=== PATIENT | male | born 1970 | race Two or more races ===

== ENCOUNTER 2020-03-27 08:46 | Outpatient (REF) | payer BC, SELFPAY ==
[2020-03-27 10:18] LABS: Alanine Aminotransferase 34 U/L (0-40); Albumin Level 4.5 g/dL (3.5-5.0); Alkaline Phosphatase 89 U/L (39-117); Anion Gap 9 (12-20); Aspartate Amino Transferase 18 U/L (5-37); Bilirubin Total 0.5 mg/dL (0.0-1.0); Blood Urea Nitrogen 15 mg/dL (9-16); Calcium 9.3 mg/dL (8.4-10.2); Carbon Dioxide 27 mmol/L (22-29); Chloride 107 mmol/L (96-108); Cholesterol 214 mg/dL; Estimated Glomerular Filt Rate > 60; Glucose Fasting 91 mg/dL (60-99); HDL Cholesterol 38 mg/dL; LDL Cholesterol Calculated 146 mg/dl; Potassium 4.1 mmol/l (3.3-5.1); Sodium 139 mmol/L (135-145); Triglycerides 152 mg/dL
[2020-03-27 10:43] LABS: Vitamin D 25-OH Total 22.5 ng/mL (>30)
== END 2020-03-27 08:47 | disposition home or self-care (01) ==
LOC: HO.LAB 08:46
PROVIDERS: PCP Internal Medicine; Visit Provider Internal Medicine
DX: E78.2 Mixed hyperlipidemia (principal); E55.9 Vitamin D deficiency, unspecified
CPT/HCPCS: 36415; 80053; 80061; 82306

== ENCOUNTER → 2020-06-26 08:56 | Outpatient (BNVA) | payer BC, SELFPAY | PROVIDERS: PCP Internal Medicine; Visit Provider Urology | DX: N40.0 Benign prostatic hyperplasia without lower urinary tract symptoms (principal); Z98.890 Other specified postprocedural states | CPT/HCPCS: 51798; 81002 ==

== ENCOUNTER 2020-11-27 08:56 | Outpatient (REF) | payer BC, SELFPAY ==
--- NOTE | ~2020-11-27 | XR_ITS ---
EXAMINATION: XR FEET, BILATERAL CLINICAL INFORMATION: Plantar fascial fibromatosis COMPARISON: None TECHNIQUE: 3 views of each foot FINDINGS: Right: Bone alignment is normal. No fracture or dislocation is seen. There is mild arthritis at the 1st MTP joint with joint space narrowing and osteophyte formation. There is also mild arthritis at the talonavicular joint with small osteophytes. There are small calcaneal spurs. Soft tissues are otherwise unremarkable. Left: Bone alignment is normal. No fracture or dislocation is seen. There are small osteophytes talonavicular joint. Joint spaces are otherwise normal. There is a small plantar calcaneal spur. Soft tissues are otherwise unremarkable. XR/XR foot LT 2V IMPRESSION: Right foot: Mild arthritis at the 1st MTP and talonavicular joint. Small calcaneal spurs. Left foot: Mild arthritis at the talonavicular joint and small plantar calcaneal spur.
--- NOTE | ~2020-11-27 | XR_ITS ---
EXAMINATION: XR FEET, BILATERAL CLINICAL INFORMATION: Plantar fascial fibromatosis COMPARISON: None TECHNIQUE: 3 views of each foot FINDINGS: Right: Bone alignment is normal. No fracture or dislocation is seen. There is mild arthritis at the 1st MTP joint with joint space narrowing and osteophyte formation. There is also mild arthritis at the talonavicular joint with small osteophytes. There are small calcaneal spurs. Soft tissues are otherwise unremarkable. Left: Bone alignment is normal. No fracture or dislocation is seen. There are small osteophytes talonavicular joint. Joint spaces are otherwise normal. There is a small plantar calcaneal spur. Soft tissues are otherwise unremarkable. XR/XR foot RT 2V IMPRESSION: Right foot: Mild arthritis at the 1st MTP and talonavicular joint. Small calcaneal spurs. Left foot: Mild arthritis at the talonavicular joint and small plantar calcaneal spur.
== END 2020-11-27 08:57 | disposition home or self-care (01) ==
LOC: HO.XRAY 08:56
PROVIDERS: PCP Internal Medicine; Visit Provider Internal Medicine
DX: M72.2 Plantar fascial fibromatosis (principal); E78.00 Pure hypercholesterolemia, unspecified
CPT/HCPCS: 73620

== ENCOUNTER 2021-02-19 07:10 | Outpatient (REF) | payer BC, SELFPAY ==
[2021-02-19 08:10] LABS: Alanine Aminotransferase 25 U/L (0-40); Albumin Level 4.5 g/dL (3.5-5.0); Alkaline Phosphatase 98 U/L (39-117); Anion Gap 12 (12-20); Aspartate Amino Transferase 16 U/L (5-37); Bilirubin Total 0.3 mg/dL (0.0-1.0); Blood Urea Nitrogen 16 mg/dL (9-16); Calcium 10.1 mg/dL (8.4-10.2); Carbon Dioxide 26 mmol/L (22-29); Chloride 110 mmol/L (96-108); Cholesterol 222 mg/dL; Estimated Glomerular Filt Rate > 60; Glucose Fasting 90 mg/dL (60-99); HDL Cholesterol 38 mg/dL; LDL Cholesterol Calculated 136 mg/dl; Potassium 4.6 mmol/L (3.3-5.1); Sodium 143 mmol/L (135-145); Total Protein 7.2 g/dL (6.5-8.0); Triglycerides 241 mg/dL
[2021-02-26 04:35] LABS: Vitamin D 25-OH, D2 <4 ng/mL; Vitamin D 25-OH, D3 17 ng/mL; Vitamin D 25-OH, Total 17 ng/mL (30-100)
== END 2021-02-19 07:11 | disposition home or self-care (01) ==
LOC: HO.LAB 07:10
PROVIDERS: PCP Internal Medicine; Visit Provider Urology
DX: Z12.5 Encounter for screening for malignant neoplasm of prostate (principal); N40.1 Benign prostatic hyperplasia with lower urinary tract symptoms; E78.5 Hyperlipidemia, unspecified; E55.9 Vitamin D deficiency, unspecified; E78.00 Pure hypercholesterolemia, unspecified
CPT/HCPCS: 36415; 80053; 80061; 82306; 84153

== ENCOUNTER → 2021-03-06 13:34 | Outpatient (BNVA) | payer BC, SELFPAY | PROVIDERS: PCP Internal Medicine; Visit Provider Urology ==

== ENCOUNTER 2022-04-20 07:20 | Outpatient (REF) | payer BC, SELFPAY ==
[2022-04-20 08:37] LABS: Alanine Aminotransferase 32 U/L (0-40); Albumin Level 4.6 g/dL (3.5-5.0); Alkaline Phosphatase 113 U/L (39-117); Anion Gap 15 (12-20); Aspartate Amino Transferase 19 U/L (5-37); Bilirubin Total 0.5 mg/dL (0.0-1.0); Blood Urea Nitrogen 19 mg/dL (9-16); Calcium 9.7 mg/dL (8.4-10.2); Carbon Dioxide 26 mmol/L (22-29); Chloride 106 mmol/L (96-108); Cholesterol 278 mg/dL; Estimated Glomerular Filt Rate > 60; Glucose Fasting 86 mg/dL (60-99); HDL Cholesterol 41 mg/dL; LDL Cholesterol Calculated 213 mg/dl; Potassium 4.6 mmol/L (3.3-5.1); Sodium 142 mmol/L (135-145); Total Protein 7.4 g/dL (6.5-8.0); Triglycerides 124 mg/dL
[2022-04-20 09:01] LABS: Prostate Specific Antigen 1.61 ng/mL (<0.05-4.0)
[2022-04-20 09:04] LABS: Vitamin D 25-OH Total 20.2 ng/mL (>30)
== END 2022-04-20 07:21 | disposition home or self-care (01) ==
LOC: HO.LAB 07:20
PROVIDERS: Absent Provider Urology; PCP Internal Medicine; Visit Provider Internal Medicine
DX: N40.1 Benign prostatic hyperplasia with lower urinary tract symptoms (principal); N13.8 Other obstructive and reflux uropathy; E66.3 Overweight; E78.5 Hyperlipidemia, unspecified; E55.9 Vitamin D deficiency, unspecified
CPT/HCPCS: 36415; 80053; 80061; 82306; 84153

== ENCOUNTER 2022-04-29 08:58 | Day surgery (SDC) | payer BC, SELFPAY ==
[2022-04-23 12:22] VITALS: BMI 29.4
--- NOTE | 2022-04-26 08:25 | HO.ANESPROP2 ---
HPI - Anesthesia Eval Consult details Narrative: 52yo M for Colonoscopy [facility]LY [facility] Active Problems Active Problems: All Active Problems (Updated 11/26/21 @ 17:06 by Sravanthi Banuelos MD) Physical exam (Acute) Overweight (BMI 25.0-29.9) (Acute) Bone spur (Acute) Benign prostatic hyperplasia with lower urinary tract symptoms (Acute) Plantar fasciitis (Acute) Hypovitaminosis D (Acute) Pure hypercholesterolemia (Acute) Past Medical History Medical History Benign prostatic hyperplasia with lower urinary tract symptoms Bone spur BPH (benign prostatic hyperplasia) Hypovitaminosis D Overweight (BMI 25.0-29.9) Physical exam Plantar fasciitis Pure hypercholesterolemia Family History Family History Father CVD (cardiovascular disease) Mother No problems noted. Maternal Grandmother Cancer Surgical History Surgical History No pertinent past surgical history Social History Social History Housing: House Alcohol intake: current Alcohol intake frequency: does not drink Alcohol type: beer Patient Tobacco Use Status: Former Tobacco user Tobacco use type: Cigarette e-Cigarette/Vaping Use: Never Used Second Hand Smoke Exposure: No service: No Current occupational status: employed Current occupational exposures/hazards: No Cognitive needs: No Hearing needs: No Vision needs: No Meds Allergies Allergy/AdvReac Type Severity Reaction Status Date / Time No Known Allergies Allergy Verified 04/29/22 14:02 Exam Exam Date and Time: April 26, 2022 0825 Height,Weight and Vital Signs: Height 5 ft 3 in Weight 75.296 kg Pertinent Lab Results Pertinent Lab Results: Laboratory Tests 04/20/22 07:33 Sodium 142 Potassium 4.6 Chloride 106 Carbon Dioxide 26 BUN 19 H Creatinine 1.01
[2022-04-29 09:07] VITALS: BP 138/78; PULSE 62; RESP 18; TEMP 36.8; O2SAT 98
[2022-04-29] MEDS: Lactated Ringers 1,000 ML 100 ML IVCONT (09:18)
--- NOTE | 2022-04-29 09:22 | MHC.SHP ---
Pre-Procedural Eval Section A Date of Service: 04/29/22 The patient is an INPATIENT: No The History & Physical has been completed within 30 days and I have reviewed it.: No Section B Chief Complaint: screening Details of Present Illness: Colon cancer screening Relevant Family History (Specify if Yes): No Relevant Social History: Tobacco Use (former smoker) Present Medications: see Short Stay Collaborative assessment Medical History: Significant History (Benign prostatic hyperplasia with lower urinary tract symptoms Bone spur BPH (benign prostatic hyperplasia) Hypovitaminosis D Overweight (BMI 25.0-29.9) Physical exam Plantar fasciitis Pure hypercholesterolemia) History of Previous Operations: No relevant previous surgery Allergies: Allergies Allergy/AdvReac Type Severity Reaction Status Date / Time No Known Allergies Allergy Verified 11/26/21 17:04 Review of Systems Sugical H&P ROS: Negative: Constitution, Respiratory and Gastrointestinal Exam Surgical H&P Exam: Normal: Heart, Normal: Lungs, Normal: Extremities and Normal: Abdomen Plan Diagnosis/Plan: Unchanged I have reviewed the history and physical and performed a pertinent physical examination on my patient. No changes have occurred unless specified.
--- NOTE | 2022-04-29 09:29 | PM.OP ---
Brief Operative Note Date of Service: 04/29/22 Pre-op diagnosis: colon cancer screening - direct access Post-op diagnosis: other ( diverticulosis, hemorrhoids) Procedure: COLONOSCOPY TO CECUM. Surgeon: Michael Dodd MD Anesthesia: MAC Was an Wheel And Caster Repairer used for this Procedure?: Yes Wheel And Caster Repairer: Javier Hart Estimated blood loss (mL): 0 Pathology: none sent Condition: stable Disposition: PACU
--- NOTE | 2022-04-29 09:32 | W.PM.OPN ---
Operative Note Operative Note Date of Service: 04/29/22 Narrative: Pre-op diagnosis: colon cancer screening - direct access Post-op diagnosis:?other ( diverticulosis, hemorrhoids) Surgeon: Michael Dodd MD Anesthesia:?MAC COLONOSCOPY TILL CECUM Consent: Indications for the procedure and potential complications of bleeding, perforation, reaction to medications and missed diagnosis were discussed with the patient and informed consent was obtained. Instrument: Olympus PCF H 190 L variable stiffness pediatric colonoscope Monitoring: Vital signs and clinical assessment, intermittent blood pressure monitoring, continuous EKG monitoring, Pulse oximetry and Carbon Dioxide monitoring were done throughout the procedure. Colon withdrawl time was 12 minutes. Procedure: The patient was placed in the left lateral decubitis position and pre-procedure medications were administered. After a digital rectal examination of the ano-rectum, the video colonoscope was inserted into the rectum and advanced through the colon to the cecum. The colonoscope was slowly withdrawn in a retrograde panoramic fashion and the colon mucosa was carefully examined including a retroflexed view of the rectum. Findings and interventions are described below. Procedure Difficulty: Without difficulty Findings: Terminal Ileum: Not evaluated Cecum: Normal Ascending Colon: Scattered moderate diverticulosis throughout the colon Transverse Colon: Scattered moderate diverticulosis throughout the colon Descending Colon: Scattered moderate diverticulosis throughout the colon Sigmoid Colon: Scattered moderate diverticulosis throughout the colon (left > right) Rectum: Normal Ano-rectum: Moderate internal hemorrhoids Colon preparation: Excellent Impression and Post Procedure Diagnosis: Colonoscopy Findings: no polyps were detected Moderate diverticulosis seen in the entire colon Moderate hemorrhoids on retroflexed exam. Plan: Patient has an appointment on 06/03/22 with his PCP. Repeat Colonoscopy in 10 years. Above findings were reviewed with the patient and diverticulosis handout was given in the discharge area
[2022-04-29 10:01] VITALS: BP 112/68; PULSE 68; RESP 16; TEMP 36.1; O2SAT 97
[2022-04-29 10:16] VITALS: BP 124/64; PULSE 74; RESP 18; TEMP 36.6; O2SAT 98
== END 2022-04-29 11:01 | disposition home or self-care (01) ==
PROVIDERS: PCP Internal Medicine; Visit Provider Internal Medicine Gastroenterology
PROC: 0DJD8ZZ Inspection of Lower Intestinal Tract, Via Natural or Artificial Opening Endoscopic (ICD-10-PCS; CPT 45378; principal; 2022-04-29 10:10)
DX: Z12.11 Encounter for screening for malignant neoplasm of colon (principal); K57.30 Diverticulosis of large intestine without perforation or abscess without bleeding; K64.8 Other hemorrhoids; E78.00 Pure hypercholesterolemia, unspecified; N40.0 Benign prostatic hyperplasia without lower urinary tract symptoms; M72.2 Plantar fascial fibromatosis; M77.30 Calcaneal spur, unspecified foot; Z79.899 Other long term (current) drug therapy; E55.9 Vitamin D deficiency, unspecified; Z87.891 Personal history of nicotine dependence
CPT/HCPCS: 45378

== ENCOUNTER 2022-05-02 11:35 | Outpatient (AMB) | payer BC, SELFPAY ==
--- NOTE | 2022-04-29 14:02 | MHC.OFFVIS ---
Intake Intake Visit Reasons: 1 Year PSA(set) Intake Note: Patient is present for Telephone PSA Follow Up Current Urology Medication: Blood Thinner: Allergies No Known Allergies Allergy (Verified 12/02/22 16:27) HPI HPI Comments History of Present Illness Details Tyler is a very pleasant male. He is seen for the following urologic conditions - lower urinary tract symptoms Kyrgyz translation provided by qualified medical sociologist Telephone evaluation 15 minutes spent in consultation Does have some terminal dribbling Recommendation pelvic floor exercises Discussed PSA which remains in range Follow-up 12 months with repeat PSA Lower urinary tract symptoms Yearly review PSA 04/10 1.9, 02/10 2.5, 04/13 1.6 Prior Medications Does have reasonable stream Review in 12 months [facility] Medical History Benign prostatic hyperplasia with lower urinary tract symptoms Bone spur BPH (benign prostatic hyperplasia) Hypovitaminosis D Overweight (BMI 25.0-29.9) Physical exam Plantar fasciitis Pure hypercholesterolemia Surgical History No pertinent past surgical history Family History Father CVD (cardiovascular disease) Mother No problems noted. Maternal Grandmother Cancer Social History (Updated 12/02/22 @ 16:32 by Sravanthi Banuelos MD) Housing: House Alcohol intake: current Alcohol intake frequency: does not drink Alcohol type: beer Patient Tobacco Use Status: Former Tobacco user Tobacco use type: Cigarette e-Cigarette/Vaping Use: Never Used Second Hand Smoke Exposure: No service: No Current occupational status: employed Current occupational exposures/hazards: No Cognitive needs: No Hearing needs: No Vision needs: No Review of Systems Const All systems reviewed & are unremarkable except as noted in HPI and below Reports no additional complaints Resp Reports no additional complaints GI Reports no additional complaints Reports as per HPI Musc Reports no additional complaints Physical Exam Telemedicine evaluation Appropriate responses Regular breathing rate and rhythm HEENT Head: Yes normal to inspection Ears: hearing grossly normal bilaterally Eyes General: appearance normal, both eyes and all related structures Neck Neck: Yes normal visual inspection Chest Chest palpation & inspection: normal inspection of the chest Resp Effort & Inspection: normal respiratory effort and able to speak in complete sentences Assessment & Plan Assessment & Plan (1) Benign prostatic hyperplasia with lower urinary tract symptoms: Code(s): N40.1 - Benign prostatic hyperplasia with lower urinary tract symptoms Plan Twelve month follow-up Orders: Orders Prostate Specific Antigen 12 Months N40.1 - Benign prostatic hyperplasia with lower urinary tract symptoms Patient Instructions: Imaging studies, laboratory and physical exam results were discussed and reviewed in detail. No major barriers to patient understanding were identified. An opportunity to ask questions regarding the treatment plan was provided. All questions were answered. The patient expressed understanding and agreement with the above treatment plan. The patient is aware they should contact our office by phone for worsening of their current condition or the appearance of new urologic symptoms. Compliance is encouraged with any medications and followup testing that is ordered. It is a privilege to participate in the urologic care of your patient. If you have any questions or concerns regarding treatment for the above conditions, or other urologic issues, please do not hesitate to contact me. The office telephone contact is [phone]. This note is constructed using voice recognition software. While every effort has been made to ensure accuracy tubing mill setter errors may have been included. Yours sincerely, Dr Apollo Milan MD, [facility] - Urology Providers of Expert, Compassionate Care for the Genitourinary System Telehealth Telehealth Location of provider rendering services: practice address Location of patient: address on file Patient Identification confirmed using: Name, : Yes Telehealth method: video Patient verbally consented to treatment: Yes Patient verbally consented to billing insurance company: Yes Patient informed of any privacy concerns related to visit: Yes Coding Level of Care Code Tele Est Pt Level 3 (54220) Diagnoses Benign prostatic hyperplasia with lower urinary tract symptoms N40.1
== END 2022-05-02 12:23 | disposition home or self-care (01) ==
LOC: HO.HUSH 11:36
PROVIDERS: PCP Internal Medicine; Visit Provider Urology
DX: N40.1 Benign prostatic hyperplasia with lower urinary tract symptoms (principal)
CPT/HCPCS: 99213

== ENCOUNTER 2022-12-07 07:14 | Outpatient (REF) | payer BC, SELFPAY ==
[2022-12-07 08:39] LABS: Alanine Aminotransferase 27 U/L (0-40); Albumin Level 4.4 g/dL (3.5-5.0); Alkaline Phosphatase 102 U/L (39-117); Anion Gap 11 (12-20); Aspartate Amino Transferase 16 U/L (5-37); Bilirubin Total 0.8 mg/dL (0.0-1.0); Blood Urea Nitrogen 19 mg/dL (9-16); Calcium 9.7 mg/dL (8.4-10.2); Carbon Dioxide 25 mmol/L (22-29); Chloride 110 mmol/L (96-108); Cholesterol 215 mg/dL; Estimated Glomerular Filt Rate > 60; Glucose Fasting 90 mg/dL (60-99); HDL Cholesterol 38 mg/dL; LDL Cholesterol Calculated 153 mg/dl; Sodium 142 mmol/L (135-145); Total Protein 7.2 g/dL (6.5-8.0); Triglycerides 121 mg/dL
[2022-12-07 08:58] LABS: Vitamin D 25-OH Total 22.9 ng/mL (>30)
== END 2022-12-07 07:15 | disposition home or self-care (01) ==
LOC: HO.LAB 07:14
PROVIDERS: PCP Internal Medicine; Visit Provider Internal Medicine
DX: Z00.00 Encounter for general adult medical examination without abnormal findings (principal); E78.5 Hyperlipidemia, unspecified; E55.9 Vitamin D deficiency, unspecified
CPT/HCPCS: 36415; 80053; 80061; 82306

== ENCOUNTER 2023-07-05 08:21 | Outpatient (REF) | payer BC, SELFPAY | END 2023-07-05 08:22 | disposition home or self-care (01) | LOC: HO.LAB 08:21 | PROVIDERS: PCP Internal Medicine; Visit Provider Urology | DX: Z12.5 Encounter for screening for malignant neoplasm of prostate (principal); N40.1 Benign prostatic hyperplasia with lower urinary tract symptoms | CPT/HCPCS: 36415; 84153 ==

== ENCOUNTER 2023-07-18 15:52 | Outpatient (AMB) | payer BC, SELFPAY ==
--- NOTE | 2023-07-18 15:54 | MHC.OFFVIS ---
Intake Intake Visit Reasons: PSA-yearly follow up Intake Note: Patient is present for PSA Follow up Allergies No Known Allergies Allergy (Verified 12/02/22 16:27) HPI HPI Comments History of Present Illness Details Tyler is a very pleasant male. He is seen for the following urologic conditions - lower urinary tract symptoms Dutch translation provided by qualified medical equipment repairer Does have some terminal dribbling Recommendation pelvic floor exercises Discussed PSA which remains in range Follow-up 12 months with repeat PSA Lower urinary tract symptoms Yearly review PSA 04/10 1.9, 02/10 2.5, 04/13 1.6, 07/16 1.9 Prior Medications - tamsulosin daily Does have reasonable stream Review in 12 months PFS Medical History Physical exam Overweight (BMI 25.0-29.9) Bone spur Benign prostatic hyperplasia with lower urinary tract symptoms Plantar fasciitis BPH (benign prostatic hyperplasia) Hypovitaminosis D Pure hypercholesterolemia Surgical History No pertinent past surgical history Family History Father CVD (cardiovascular disease) Mother No problems noted. Maternal Grandmother Cancer Social History Housing: House Alcohol intake: current Alcohol intake frequency: does not drink Alcohol type: beer Patient Tobacco Use Status: Former Tobacco user Tobacco use type: Cigarette e-Cigarette/Vaping Use: Never Used Second Hand Smoke Exposure: No service: No Current occupational status: employed Current occupational exposures/hazards: No Cognitive needs: No Hearing needs: No Vision needs: No Review of Systems Const Denies chills and Denies fever(s) Card Reports no additional complaints and Denies syncope Resp Denies cough GI Denies abdominal pain and Denies heartburn Reports as per HPI and Denies change in libido Neuro Denies syncope Psych Denies change in libido Endo Denies change in libido Physical Exam Const General: cooperative, healthy appearing, comfortable and no acute distress Orientation/consciousness: patient oriented x3 HEENT Face and sinus: Yes normal facial exam Mouth: moist mucous membranes Neck Neck: Yes normal visual inspection, Yes full ROM and Yes trachea midline Chest Chest palpation & inspection: normal inspection of the chest Resp Effort & Inspection: normal respiratory effort, able to speak in complete sentences and no respiratory distress GI Inspection: Yes normal to inspection Back/Spine/Pelvis Cervical Spine: normal cervical lordosis Thoracic/Lumbar Spine: thoracic and lumbar spine normal to inspection Skin General skin exam: no rashes or lesions noted Neuro General: patient oriented x3, gait normal, tone normal and moves all extremities Extrem General: Yes normal to inspection and Yes capillary refill normal Assessment & Plan Assessment & Plan (1) Benign prostatic hyperplasia with lower urinary tract symptoms: Code(s): N40.1 - Benign prostatic hyperplasia with lower urinary tract symptoms Plan Twelve month follow-up Patient Instructions: Imaging studies, laboratory and physical exam results were discussed and reviewed in detail. No major barriers to patient understanding were identified. An opportunity to ask questions regarding the treatment plan was provided. All questions were answered. The patient expressed understanding and agreement with the above treatment plan. The patient is aware they should contact our office by phone for worsening of their current condition or the appearance of new urologic symptoms. Compliance is encouraged with any medications and followup testing that is ordered. It is a privilege to participate in the urologic care of your patient. If you have any questions or concerns regarding treatment for the above conditions, or other urologic issues, please do not hesitate to contact me. The office telephone contact is [phone]. This note is constructed using voice recognition software. While every effort has been made to ensure accuracy hotel valet attendant errors may have been included. Yours sincerely, Dr Apollo Milan MD, [facility] - Urology Providers of Expert, Compassionate Care for the Genitourinary System Coding Level of Care Code Est Pt Level 4 (30190) Diagnoses Benign prostatic hyperplasia with lower urinary tract symptoms N40.1
== END 2023-07-18 16:19 | disposition home or self-care (01) ==
PROVIDERS: PCP Internal Medicine; Referring Provider Internal Medicine; Visit Provider Urology
DX: N40.1 Benign prostatic hyperplasia with lower urinary tract symptoms (principal)
CPT/HCPCS: 99213

== ENCOUNTER → 2023-07-18 15:52 | Outpatient (BNVA) | payer BC, SELFPAY | PROVIDERS: PCP Internal Medicine; Visit Provider Urology ==

== ENCOUNTER 2023-12-08 17:05 | Outpatient (AMB) | payer BC, SELFPAY ==
[2023-12-08 17:14] VITALS: BP 132/88; PULSE 82; O2SAT 97; BMI 29.1
--- NOTE | 2023-12-08 17:14 | MHC.PC.OV ---
Vital Signs 12/08/23 17:14 Height 5 ft 2.6 in Weight 162 lb 4 oz BMI 29.1 BP 132/88 Blood Pressure Location Lt brachial Position Sitting Pulse 82 Pulse Source Pulse Oximeter Pulse Oximetry (%) 97 Oxygen Delivery Method Room Air Intake Visit Reasons: pe Intake Note: Patient is here today for a physical. Regulatory Submissions Associate Required: No Accompanied by: Self / Same As Patient Allergies No Known Allergies Allergy (Verified 12/08/23 17:21) Medication List - Last Reconciled 12/08/23 by Sravanthi Banuelos MD atorvastatin 20 mg PO DAILY 90 days cholecalciferol (vitamin D3) 25 mcg PO DAILY 90 days tamsulosin 0.4 mg PO DAILY Tobacco use date assessed: 12/08/23 Dental Screening Dental Screen Date: 12/08/23 Did you have a dental visit in the last 12 months?: No Did you have a dental problem in the last 6 months where you did not have access to dental care?: No Was dental information given to patient?: Patient has dentist HPI HPI Comments History of Present Illness Details This is a 53-year-old male that comes for his physical exam. Colonoscopy done 2021 was normal. Chest pain or shortness on breath. Compliant with medications. [facility] Medical History Physical exam Overweight (BMI 25.0-29.9) Bone spur Benign prostatic hyperplasia with lower urinary tract symptoms Plantar fasciitis BPH (benign prostatic hyperplasia) Hypovitaminosis D Pure hypercholesterolemia Surgical History No pertinent past surgical history Family History Father CVD (cardiovascular disease) Mother No problems noted. Maternal Grandmother Cancer Social History (Updated 12/08/23 @ 17:24 by Sravanthi Banuelos MD) Housing: House Alcohol intake: current Alcohol intake frequency: holidays/special occasions only Alcohol type: beer Patient Tobacco Use Status: Former Tobacco user Tobacco use type: Cigarette e-Cigarette/Vaping Use: Never Used Second Hand Smoke Exposure: No service: No Current occupational status: employed Current occupational exposures/hazards: No Cognitive needs: No Hearing needs: No Vision needs: No Questionnaire PHQ-9 Over the last 2 weeks, how often have you been bothered by any of the following problems? 1. Little interest or pleasure in doing things: not at all 2. Feeling down, depressed, or hopeless: not at all 3. Trouble falling or staying asleep, or sleeping too much: not at all 4. Feeling tired or having little energy: not at all 5. Poor appetite or overeating: not at all 6. Feeling bad about yourself - or that you are a failure or have let yourself or your family down: not at all 7. Trouble concentrating on things, such as reading the newspaper or watching television: not at all 8. Moving or speaking so slowly that other people could have noticed. Or the opposite - being so fidgety or restless that you have been moving around a lot more than usual: not at all 9. Thoughts that you would be better off or of hurting yourself in some way: not at all Total score: 0 Depression Screening Interpretation: Negative Depression Screening Done: Yes 61640 - PHQ-9 Billing: Yes Source: Developed by Drs. Javier Goldsmith, Jacqueline Coleman, Paco Zapata and colleagues, with an educational alexis from [employer]. Thrive Questionnaire Date Thrive assessed: 12/08/23 I am a: Patient What is your living situation today?: I have a steady place to live Within the past 12 months, did the food you bought not last and you didn't have the money to get more?: Never true Within the past 12 months, did you worry whether your food would run out before you got money to buy more?: Never true Do you have trouble paying for medicines?: No Do you have trouble getting transportation to medical appointments?: No Do you have trouble paying your heating and electricity bill?: No Do you have trouble taking care of your child, family member or friend?: No Do you have trouble with day-to-day activities such as bathing, preparing meals, shopping, managing finances, etc.?: No Are you currently unemployed and looking for a job?: No Are you interested in more education?: No Please select the resources that you would like help with: None Currently or been in a relationship where the following occur: no concerns reported THRIVE Score: 0 AUDIT C Alcohol Use Questionnaire (AUDIT-C) 1. How often do you have a drink containing alcohol?: Monthly or less 2. How many drinks containing alcohol do you have on a typical day when you are drinking?: 1 or 2 3. How often do you have six or more drinks on one occasion?: Never Total Score: 1 Score Reviewed/Action Taken: No CHIARA-7 AMB Questionnaire CHIARA-7 Date CHIARA - 7 assessed: 12/08/23 Feeling nervous, anxious, or on edge: 0 = Not at all Not being able to stop or control worryin = Not at all Worrying too much about different things: 0 = Not at all Trouble relaxin = Not at all Being so restless that it is hard to sit still: 0 = Not at all Becoming easily annoyed or irritable: 0 = Not at all Feeling afraid as if something awful might happen: 0 = Not at all Total CHIARA-7 score (0-4 normal; 5-9 mild; 10-14 moderate; 15-21 severe): 0 Source: Developed by Drs. Javier Goldsmith, Jacqueline Coleman, Paco Zapata and colleagues, with an educational alexis from [employer]. CHIARA-7 Assessment Billing CHIARA-7 Assessment Tool: CHIARA-7 Assessment 01849 Review of Systems Const All systems reviewed & are unremarkable except as noted in HPI and below Card Denies chest pain at rest, Denies chest pain with activity, Denies edema, Denies irregular heart rhythm, Denies claudication, Denies dyspnea, Denies dyspnea on exertion, Denies orthopnea, Denies paroxysmal nocturnal dyspnea and Denies slow heart rate Resp Denies cough, Denies dyspnea and Denies dyspnea on exertion GI Denies abdominal pain, Denies change in bowel habits, Denies excessive flatus, Denies nausea and Denies vomiting Denies urinary hesitancy, Denies urinary incontinence and Denies urinary urgency Physical exam (Primary Care) Vital Signs: Last Vital Signs Pulse 82 12/08/23 17:14 BP 132/88 12/08/23 17:14 Pulse Ox 97 12/08/23 17:14 Oxygen Delivery Method Room Air 12/08/23 17:14 BMI result Body Mass Index 29.1 Tobacco/Smoking Status: Tobacco use Status Tobacco use date assessed 12/08/23 12/08/23 17:19 Patient Tobacco Use Status Former Tobacco user 12/08/23 17:19 Tobacco use type Cigarette 12/08/23 17:19 e-Cigarette/Vaping Use Never Used 12/08/23 17:19 PHQ-9: PHQ-9 Score PHQ-9: Total score 0 12/08/23 17:19 Depression Screening Interpretation: Negative Thrive Assessment: Date of Thrive Assessment Date Thrive assessed 12/08/23 12/08/23 17:19 Currently or been in a relationship where the following occur: no concerns reported Const Orientation/consciousness: patient oriented x3 HENMT Head: Yes normal to inspection, Yes normocephalic and Yes atraumatic Ears: external ears normal Eyes General: appearance normal, both eyes and all related structures Eyelids: Yes eyelids normal Conjunctivae: conjunctivae normal Neck Neck: Yes normal visual inspection and Yes supple Resp Effort & Inspection: normal respiratory effort Auscultation: clear to auscultation bilaterally Cardio Jugular venous distension: no JVD Rate: regular rate Rhythm: regular rhythm Heart sounds: S1 normal heart sound present and S2 normal heart sound present GI Inspection: Yes normal to inspection Palpation (GI): Soft to palpation and nontender Auscultation: normal bowel sounds Skin General skin exam: no rashes or lesions noted Neuro General: patient oriented x3 and no focal motor deficits Extrem General: Yes full ROM Psych Appearance: grossly normal Assessment and Plan Assessment & Plan (1) Physical exam: Code(s): Z00.00 - Encounter for general adult medical examination without abnormal findings Plan: Repeat in a year. Orders: Orders Lipid Panel Today E78.5 - Hyperlipidemia, unspecified Comprehensive [place]. Panel Fast Today Z00.00 - Encounter for general adult medical examination without abnormal findings Vitamin D 25-OH Total Today E55.9 - Vitamin D deficiency, unspecified Medications: Refilled atorvastatin 20 mg PO DAILY 90 days 90 tabs 1RF Coding Level of Care Code Est Pt Prev Care 40-64y(85742) Diagnoses Physical exam Z00.00 Additional Codes CHIARA-7 Assessment Billing - CHIARA-7 Assessment Tool: CHIARA-7 Assessment 38812 ([id number]) Time Spent (min) 30
== END 2023-12-08 17:30 | disposition home or self-care (01) ==
PROVIDERS: PCP Internal Medicine; Visit Provider Internal Medicine
DX: Z00.00 Encounter for general adult medical examination without abnormal findings (principal); E78.5 Hyperlipidemia, unspecified; E55.9 Vitamin D deficiency, unspecified
CPT/HCPCS: 99396

== ENCOUNTER 2023-12-16 06:16 | Outpatient (REF) | payer BC, SELFPAY ==
[2023-12-16 08:29] LABS: Alanine Aminotransferase 26 U/L (0-40); Albumin Level 4.4 g/dL (3.5-5.0); Alkaline Phosphatase 108 U/L (39-117); Anion Gap 12 (12-20); Aspartate Amino Transferase 18 U/L (5-37); Bilirubin Total 0.4 mg/dL (0.0-1.0); Blood Urea Nitrogen 17 mg/dL (9-16); Calcium 9.5 mg/dL (8.4-10.2); Carbon Dioxide 26 mmol/L (22-29); Chloride 110 mmol/L (96-108); Cholesterol 243 mg/dL (<200); Estimated Glomerular Filt Rate > 60; Glucose Fasting 87 mg/dL (60-99); HDL Cholesterol 40 mg/dL (>40); LDL Cholesterol Calculated 171 mg/dL (<100); Potassium 3.7 mmol/L (3.3-5.1); Sodium 144 mmol/L (135-145); Total Protein 7.2 g/dL (6.5-8.0); Triglycerides 162 mg/dL (<150)
== END 2023-12-16 06:17 | disposition home or self-care (01) ==
LOC: HO.LAB 06:16
PROVIDERS: PCP Internal Medicine; Visit Provider Internal Medicine
DX: Z00.00 Encounter for general adult medical examination without abnormal findings (principal); E78.5 Hyperlipidemia, unspecified; E55.9 Vitamin D deficiency, unspecified
CPT/HCPCS: 36415; 80053; 80061; 82306

== ENCOUNTER 2023-12-30 16:54 | Outpatient (AMB) | payer BC, SELFPAY ==
[2023-12-30 16:55] VITALS: BP 152/82; PULSE 72; O2SAT 98; BMI 29.2
--- NOTE | 2023-12-30 16:55 | MHC.PC.OV ---
Vital Signs 12/30/23 16:55 Height 5 ft 2.6 in Weight 163 lb BMI 29.2 BP 152/82 H Blood Pressure Location Lt brachial Position Sitting Pulse 72 Pulse Source Pulse Oximeter Pulse Oximetry (%) 98 Oxygen Delivery Method Room Air Intake Visit Reasons: BP F/U Commercial Illustrator Required: No Accompanied by: Self / Same As Patient Allergies No Known Allergies Allergy (Verified 12/30/23 17:04) Medication List - Last Reconciled 12/30/23 by Sravanthi Banuelos MD atorvastatin 20 mg PO DAILY 90 days cholecalciferol (vitamin D3) 25 mcg PO DAILY 90 days tamsulosin 0.4 mg PO DAILY Tobacco use date assessed: 12/08/23 Dental Screening Dental Screen Date: 12/08/23 HPI HPI Comments History of Present Illness Details This is a 53-year-old male with essential hypertension, pure hypercholesterolemia and low vitamin-D that comes today complaining that his blood pressure has been over 140/90 at home. I will start him on losartan. Also cholesterol is elevated and I will increase atorvastatin from 20 mg to 40 mg. Vitamin-D is low and I will send supplements. No chest pain or shortness on breath. [facility] Medical History (Updated 12/30/23 @ 17:09 by Sravanthi Banuelos MD) Physical exam Overweight (BMI 25.0-29.9) Bone spur Benign prostatic hyperplasia with lower urinary tract symptoms Plantar fasciitis BPH (benign prostatic hyperplasia) Hypovitaminosis D Pure hypercholesterolemia Surgical History No pertinent past surgical history Family History Father CVD (cardiovascular disease) Mother No problems noted. Maternal Grandmother Cancer Social History Housing: House Alcohol intake: current Alcohol intake frequency: holidays/special occasions only Alcohol type: beer Patient Tobacco Use Status: Former Tobacco user Tobacco use type: Cigarette e-Cigarette/Vaping Use: Never Used Second Hand Smoke Exposure: No service: No Current occupational status: employed Current occupational exposures/hazards: No Cognitive needs: No Hearing needs: No Vision needs: No Questionnaire Thrive Questionnaire Date Thrive assessed: 12/08/23 CHIARA-7 AMB Questionnaire CHIARA-7 Date CHIARA - 7 assessed: 12/08/23 Source: Developed by Drs. Javier Goldsmith, Jacqueline Coleman, Paco Zapata and colleagues, with an educational alexis from [employer]. Review of Systems Const All systems reviewed & are unremarkable except as noted in HPI and below Card Denies chest pain at rest, Denies chest pain with activity, Denies edema, Denies irregular heart rhythm, Denies claudication, Denies dyspnea, Denies dyspnea on exertion, Denies orthopnea, Denies paroxysmal nocturnal dyspnea and Denies slow heart rate Resp Denies cough, Denies dyspnea and Denies dyspnea on exertion GI Denies abdominal pain, Denies change in bowel habits, Denies excessive flatus, Denies nausea and Denies vomiting Denies urinary hesitancy, Denies urinary incontinence and Denies urinary urgency Musc Denies atrophy, Denies deformity and Denies limited range of motion Physical exam (Primary Care) Vital Signs: Last Vital Signs Pulse 72 12/30/23 16:55 BP 152/82 H 12/30/23 16:55 Pulse Ox 98 12/30/23 16:55 Oxygen Delivery Method Room Air 12/30/23 16:55 BMI result Body Mass Index 29.2 Tobacco/Smoking Status: Tobacco use Status Tobacco use date assessed 12/08/23 12/30/23 16:56 Patient Tobacco Use Status Former Tobacco user 12/30/23 16:56 Tobacco use type Cigarette 12/30/23 16:56 e-Cigarette/Vaping Use Never Used 12/30/23 16:56 Thrive Assessment: Date of Thrive Assessment Date Thrive assessed 12/08/23 12/30/23 16:56 Resp Effort & Inspection: normal respiratory effort Auscultation: clear to auscultation bilaterally Cardio Jugular venous distension: no JVD Rate: regular rate Rhythm: regular rhythm Heart sounds: S1 normal heart sound present and S2 normal heart sound present Extrem General: Yes full ROM Assessment and Plan Assessment & Plan (1) Essential hypertension: Code(s): I10 - Essential (primary) hypertension Plan: Start losartan. Blood pressure goal is equal or less than 130/80. (2) Pure hypercholesterolemia: Code(s): E78.00 - Pure hypercholesterolemia, unspecified Plan: Increase statins. (3) Hypovitaminosis D: Code(s): E55.9 - Vitamin D deficiency, unspecified Plan: Continue vitamin-D supplements. Medications: New losartan 25 mg PO DAILY 30 tabs 1RF 30 days I10 - Essential (primary) hypertension atorvastatin 40 mg PO BEDTIME 90 tabs 1RF 90 days Refilled cholecalciferol (vitamin D3) 25 mcg PO DAILY 90 tabs 3RF 90 days Discontinued atorvastatin Discontinued Reason: Patient Completed Course 20 mg PO DAILY 90 days 90 tabs 1RF Coding Level of Care Code Est Pt Level 3 (15560) Complex EM visit Add On G2211 Diagnoses Essential hypertension I10 Pure hypercholesterolemia E78.00 Hypovitaminosis D E55.9 Time Spent (min) 22
== END 2023-12-30 17:39 | disposition home or self-care (01) ==
LOC: HO.HMGH 16:54
PROVIDERS: PCP Internal Medicine; Visit Provider Internal Medicine
DX: I10 Essential (primary) hypertension (principal); E78.00 Pure hypercholesterolemia, unspecified; E55.9 Vitamin D deficiency, unspecified
CPT/HCPCS: 99213

== ENCOUNTER 2024-12-09 17:10 | Outpatient (AMB) | payer BC, SELFPAY ==
[2024-12-09 17:15] VITALS: BP 124/86; BMI 29.1
--- NOTE | 2024-12-09 17:15 | A.OFFPC_ITS ---
Vital Signs 12/09/24 17:15 Height 5 ft 2.6 in Weight 162 lb BMI 29.1 BP 124/86 Blood Pressure Location Lt brachial Position Sitting Intake Visit Reasons: Annual Exam Intake Note: Patient here for an annual physical exam Corn Grinder Required: No Accompanied by: Self / Same As Patient Allergies No Known Allergies Allergy (Verified 12/09/24 17:32) Medication List - Last Reconciled 12/09/24 by Sravanthi Banuelos MD atorvastatin 40 mg PO BEDTIME 90 days cholecalciferol (vitamin D3) 25 mcg PO DAILY 90 days losartan 50 mg PO DAILY 90 days Tobacco use date assessed: 12/09/24 Dental Screening Dental Screen Date: 12/09/24 Did you have a dental visit in the last 12 months?: Yes Did you have a dental problem in the last 6 months where you did not have access to dental care?: No Was dental information given to patient?: Patient has dentist HPI HPI Comments History of Present Illness Details The patient is a 54-year-old male presenting for an annual physical examination and management of nephrolithiasis and rash. The patient reports a history of nephrolithiasis, with kidney stones diagnosed within the past year. He has not experienced any recent episodes of renal colic and is unsure if the stones have passed. The patient also reports a rash that has developed on his chest, which is pruritic and bilateral. He denies any known allergies but suspects a recent dietary change may have triggered the rash. The patient has a family history of cardiovascular disease, with his father having at age 50 from heart disease. His mother is alive and healthy. He has a history of smoking but quit many years ago and consumes alcohol occasionally. He is currently on atorvastatin for hyperlipidemia and losartan for hypertension. - Colonoscopy performed in 2021, next du e in 2031 - Blood pressure well-controlled on curr ent medication regimen [facility] Medical History Physical exam Overweight (BMI 25.0-29.9) Bone spur Benign prostatic hyperplasia with lower urinary tract symptoms Plantar fasciitis BPH (benign prostatic hyperplasia) Hypovitaminosis D Pure hypercholesterolemia Surgical History No pertinent past surgical history Family History Father CVD (cardiovascular disease) Mother No problems noted. Maternal Grandmother Cancer Social History Housing: House Alcohol intake: current Alcohol intake frequency: holidays/special occasions only Alcohol type: beer Patient Tobacco Use Status: Former Tobacco user Tobacco use type: Cigarette e-Cigarette/Vaping Use: Never Used Second Hand Smoke Exposure: No service: No Current occupational status: employed Current occupational exposures/hazards: No Cognitive needs: No Hearing needs: No Vision needs: No Questionnaire PHQ-9 Over the last 2 weeks, how often have you been bothered by any of the following problems? 1. Little interest or pleasure in doing things: not at all 2. Feeling down, depressed, or hopeless: not at all 3. Trouble falling or staying asleep, or sleeping too much: not at all 4. Feeling tired or having little energy: not at all 5. Poor appetite or overeating: not at all 6. Feeling bad about yourself - or that you are a failure or have let yourself or your family down: not at all 7. Trouble concentrating on things, such as reading the newspaper or watching television: not at all 8. Moving or speaking so slowly that other people could have noticed. Or the opposite - being so fidgety or restless that you have been moving around a lot more than usual: not at all 9. Thoughts that you would be better off or of hurting yourself in some way: not at all Total score: 0 Depression Screening Interpretation: Negative Depression Screening Done: Yes 64791 - PHQ-9 Billing: Yes Source: Developed by Drs. Javier Goldsmith, Jacqueline Coleman, Paco Zapata and colleagues, with an educational aelxis from [employer]. Thrive Questionnaire Date Thrive assessed: 12/09/24 I am a: Patient What is your living situation today?: I have a steady place to live Within the past 12 months, did the food you bought not last and you didn't have the money to get more?: Never true Within the past 12 months, did you worry whether your food would run out before you got money to buy more?: Never true Do you have trouble paying for medicines?: No Do you have trouble getting transportation to medical appointments?: No Do you have trouble paying your heating and electricity bill?: No Do you have trouble taking care of your child, family member or friend?: No Do you have trouble with day-to-day activities such as bathing, preparing meals, shopping, managing finances, etc.?: No Are you currently unemployed and looking for a job?: No Are you interested in more education?: No Please select the resources that you would like help with: None Currently or been in a relationship where the following occur: No concerns reported THRIVE Score: 0 AUDIT C Alcohol Use Questionnaire (AUDIT-C) 1. How often do you have a drink containing alcohol?: Monthly or less 2. How many drinks containing alcohol do you have on a typical day when you are drinking?: 1 or 2 3. How often do you have six or more drinks on one occasion?: Never Total Score: 1 Score Reviewed/Action Taken: No CHIARA-7 AMB Questionnaire CHIARA-7 Date CHIARA - 7 assessed: 12/09/24 Feeling nervous, anxious, or on edge: 0 = Not at all Not being able to stop or control worryin = Not at all Worrying too much about different things: 0 = Not at all Trouble relaxin = Not at all Being so restless that it is hard to sit still: 0 = Not at all Becoming easily annoyed or irritable: 0 = Not at all Feeling afraid as if something awful might happen: 0 = Not at all Total CHIARA-7 score (0-4 normal; 5-9 mild; 10-14 moderate; 15-21 severe): 0 Source: Developed by Drs. Javier Goldsmith, Jacqueline Coleman, Paco Zapata and colleagues, with an educational alexis from [employer]. CHIARA-7 Assessment Billing CHIARA-7 Assessment Tool: CHIARA-7 Assessment 25296 Review of Systems Const All systems reviewed & are unremarkable except as noted in HPI and below Card Denies chest pain at rest, Denies chest pain with activity, Denies edema, Denies irregular heart rhythm, Denies claudication, Denies dyspnea, Denies dyspnea on exertion, Denies orthopnea, Denies paroxysmal nocturnal dyspnea and Denies slow heart rate Resp Denies cough, Denies dyspnea and Denies dyspnea on exertion GI Denies abdominal pain, Denies change in bowel habits, Denies excessive flatus, Denies nausea and Denies vomiting Denies urinary hesitancy, Denies urinary incontinence and Denies urinary urgency Musc Denies abnormal gait, Denies atrophy, Denies deformity and Denies limited range of motion Skin/Breast Denies bleeding lesions, Denies changing lesions and Denies rash Neuro Denies abnormal gait, Denies behavioral changes and Denies lack of coordination Psych Denies behavioral changes Physical exam (Primary Care) Vital Signs: Last Vital Signs BP 124/86 12/09/24 17:15 BMI result Body Mass Index 29.1 Tobacco/Smoking Status: Tobacco use Status Tobacco use date assessed 12/09/24 12/09/24 17:25 Patient Tobacco Use Status Former Tobacco user 12/09/24 17:25 Tobacco use type Cigarette 12/09/24 17:25 e-Cigarette/Vaping Use Never Used 12/09/24 17:25 PHQ-9: PHQ-9 Score PHQ-9: Total score 0 12/09/24 17:35 Depression Screening Interpretation: Negative Thrive Assessment: Date of Thrive Assessment Date Thrive assessed 12/09/24 12/09/24 17:25 Currently or been in a relationship where the following occur: No concerns reported [facility] Head: Yes normal to inspection, Yes normocephalic and Yes atraumatic Ears: external ears normal Eyes General: appearance normal, both eyes and all related structures Eyelids: Yes eyelids normal Conjunctivae: conjunctivae normal Neck Neck: Yes normal visual inspection and Yes supple Resp Effort & Inspection: normal respiratory effort Auscultation: clear to auscultation bilaterally Cardio Jugular venous distension: no JVD Rate: regular rate Rhythm: regular rhythm Heart sounds: S1 normal heart sound present and S2 normal heart sound present GI Inspection: Yes normal to inspection Palpation (GI): Soft to palpation and nontender Auscultation: normal bowel sounds Skin Rashes: rashes noted (Maculopapular pruritic rash in chest) Neuro General: no focal motor deficits Extrem General: Yes full ROM Psych Appearance: grossly normal Immunizations Boostrix Tdap 2.5 Lf unit-8 mcg-5 Lf/0.5 mL intramuscular syringe Performing Provider: Sravanthi Banuelos MD [place] [facility] [place] [place] [facility] Administered by: JAVIER Escobar on 12/09/24 17:49 Dose Route Admin Location Dispensed Lot Number Expiration Date NDC Medical Insurance Claims Processor 0.5 mL IM Left Deltoid 0.5 mL [id number] 02/18/27 [id number] [employer] Total Dispensed Waste 0.5 mL 0 % VIS Given Date VIS Provided VIS Publication Date 12/09/24 Single Vaccine 24 Eligibility Eligibility Date Funding Source Not [facility] Eligible 12/09/24 Private Coding Level of Care Code Est Pt Level 3 (60738) Est Pt Prev Care 40-64y(36984) Diagnoses Physical exam Z00.00 Rash R21 Nephrolithiasis N20.0 Additional Codes PHQ-9 - 11923 - PHQ-9 Billing: Yes ([id number]) CHIARA-7 Assessment Billing - CHIARA-7 Assessment Tool: CHIARA-7 Assessment 47825 ([id number]) Time Spent (min) 34 Assessment & Plan Assessment & Plan (1) Physical exam: Code(s): Z00.00 - Encounter for general adult medical examination without abnormal findings Category: Medical (2) Rash: Code(s): R21 - Rash and other nonspecific skin eruption Category: Medical (3) Nephrolithiasis: Code(s): N20.0 - Calculus of kidney Category: Medical Plan The patient will undergo an ultrasound of the kidneys to assess for the presence of nephrolithiasis and determine if any stones remain. Additionally, the patient will be prescribed medication to address the pruritic rash, with a caution that the medication may elevate blood glucose levels. Preventative care measures include scheduling the next colonoscopy for 2031, given the normal results of the previous examination. The patient is advised to continue current medications for hypertension and hyperlipidemia, as blood pressure is well-controlled. Patient was informed and verbally consented to the use of an ambient scribe for clinic note documentation during this visit. Orders: Orders Comprehensive [address]. Panel Fast Today E78.00 - Pure hypercholesterolemia, unspecified PSA,Total (Free>4and<10) Today R35.1 - Nocturia US renal BI Today N20.0 - Calculus of kidney Lipid Panel Today E78.5 - Hyperlipidemia, unspecified H pylori Ag Stool Today R19.7 - Diarrhea, unspecified Vitamin D 25-OH Total Today E55.9 - Vitamin D deficiency, unspecified TDaP Immunization Today Z23 - Encounter for immunization Medications: New prednisone Take 4 tabs for 2 days, then 3 tabs for 2 days, then 2 tabs for 2 days, then 1 tab for 2 days 10 mg PO DIRECTED 20 tabs 0RF 8 days cetirizine (All Day Allergy (cetirizine)) 10 mg PO DAILY PRN 30 tabs 0RF allergy symptoms 30 days R21 - Rash and other nonspecific skin eruption
== END 2024-12-09 17:46 | disposition home or self-care (01) ==
LOC: HO.HMCH 17:10
PROVIDERS: PCP Internal Medicine; Visit Provider Internal Medicine
DX: Z00.00 Encounter for general adult medical examination without abnormal findings (principal); R21 Rash and other nonspecific skin eruption; N20.0 Calculus of kidney; Z23 Encounter for immunization

== ENCOUNTER → 2024-12-09 17:10 | Outpatient (BNVA) | payer BC, SELFPAY | PROVIDERS: PCP Internal Medicine; Visit Provider Internal Medicine | DX: Z00.00 Encounter for general adult medical examination without abnormal findings (principal); N20.0 Calculus of kidney; R21 Rash and other nonspecific skin eruption; E78.5 Hyperlipidemia, unspecified; I10 Essential (primary) hypertension; Z23 Encounter for immunization; Z87.891 Personal history of nicotine dependence | CPT/HCPCS: 90471; 90715; 96127 ==

== ENCOUNTER 2024-12-18 07:02 | Outpatient (REF) | payer BC, SELFPAY ==
[2024-12-18 07:48] LABS: Alanine Aminotransferase 30 U/L (0-40); Albumin Level 4.5 g/dL (3.5-5.0); Alkaline Phosphatase 94 U/L (39-117); Anion Gap 12 (12-20); Aspartate Amino Transferase 20 U/L (5-37); Bilirubin Total 0.4 mg/dL (0.0-1.0); Blood Urea Nitrogen 14 mg/dL (9-16); Calcium 9.1 mg/dL (8.4-10.2); Carbon Dioxide 25 mmol/L (22-29); Chloride 109 mmol/L (96-108); Cholesterol 235 mg/dL (<200); Estimated Glomerular Filt Rate > 60; Glucose Fasting 90 mg/dL (60-99); HDL Cholesterol 44 mg/dL (>40); LDL Cholesterol Calculated 174 mg/dL (<100); Potassium 3.9 mmol/L (3.3-5.1); Sodium 142 mmol/L (135-145); Triglycerides 89 mg/dL (<150)
[2024-12-18 08:03] LABS: Vitamin D 25-OH Total 19.7 ng/mL (>30)
== END 2024-12-18 07:03 | disposition home or self-care (01) ==
LOC: HO.LAB 07:02
PROVIDERS: PCP Internal Medicine; Visit Provider Internal Medicine
DX: E78.00 Pure hypercholesterolemia, unspecified (principal); E55.9 Vitamin D deficiency, unspecified; R35.1 Nocturia; E78.5 Hyperlipidemia, unspecified; Z12.5 Encounter for screening for malignant neoplasm of prostate
CPT/HCPCS: 36415; 80053; 80061; 82306; 84153

== ENCOUNTER 2025-01-01 09:17 | Outpatient (AMB) | payer BC, SELFPAY ==
[2025-01-01 09:17] VITALS: BP 112/80; PULSE 58; RESP 16; TEMP 36.7; O2SAT 97; BMI 30.2
--- NOTE | 2025-01-01 09:17 | MHC.OFFWIV ---
Intake Vital Signs 01/01/25 09:17 Height 5 ft 2 in Weight 165 lb BMI 30.2 BP 112/80 Blood Pressure Location Rt brachial Position Sitting Respiration 16 Pulse 58 Pulse Source Pulse Oximeter Temp 98.0 F Temp Source Oral Pulse Oximetry (%) 97 Intake Visit Reasons: EP rash on groin area & is spreading throughout Intake Note: Pt is here today c/o rash bilteral groin is spreading few months Patient Tobacco Use Status: Former Tobacco user Allergies No Known Allergies Allergy (Verified 01/01/25 09:18) HPI EP rash on groin area & is spreading throughout HPI Details Patient is a 54-year-old male with hyperlipidemia, hypertension, and BPH who comes to the walk-in clinic reporting worsening rash since he was evaluated by his primary care at his appointment last month. He had only reported having the rash to the axillary areas, however today he states that he started with a rash to the right groin area and it has spread over to the left side and then to the lower abdomen and finally to the bilateral axillary/flank areas. He reports that he did not tell his PCP at his last month appointment about the groin and abdomen because he thought it was a same thing and they did not need to know about it. However, he was started on the prednisone due to diagnosis of likely contact dermatitis, and this likely worsened the rash. [facility] Medical History Physical exam Overweight (BMI 25.0-29.9) Bone spur Benign prostatic hyperplasia with lower urinary tract symptoms Plantar fasciitis BPH (benign prostatic hyperplasia) Hypovitaminosis D Pure hypercholesterolemia Surgical History No pertinent past surgical history Family History Father CVD (cardiovascular disease) Mother No problems noted. Maternal Grandmother Cancer Social History Housing: House Alcohol intake: current Alcohol intake frequency: holidays/special occasions only Alcohol type: beer Patient Tobacco Use Status: Former Tobacco user Tobacco use type: Cigarette e-Cigarette/Vaping Use: Never Used Second Hand Smoke Exposure: No service: No Current occupational status: employed Current occupational exposures/hazards: No Cognitive needs: No Hearing needs: No Vision needs: No Review of Systems Const All systems reviewed & are unremarkable except as noted in HPI and below Physical Exam Vital Signs: Last Vital Signs Temp 98.0 F 01/01/25 09:17 Pulse 58 01/01/25 09:17 Resp 16 01/01/25 09:17 BP 112/80 01/01/25 09:17 Pulse Ox 97 01/01/25 09:17 BMI result Body Mass Index 30.2 Const General: cooperative, healthy appearing, comfortable, no acute distress, alert, awake, Physically active and well groomed; No anxious, diaphoretic, ill appearing, intoxicated appearing, poor hygiene or tired appearing Nutritional Appearance: average body habitus Limitations: no limitations Resp Effort & Inspection: normal respiratory effort Skin Other: violaceous plaques to the bilateral groin and lower abdomen area consistent with apparent tinea cruris. The bilateral axillary and flank areas are less apparent, with normal pigmented macular papular and annular lesions seem more consistent with tinea versicolor. Skin otherwise is good color, warm and dry Psych Appearance: grossly normal Mental Status: mental status grossly normal Speech and movement: Normal speech and movement present Affect: normal affect Attitude: cooperative Thought process: Normal thought process present Insight: Good insight present (Psych) Judgement: Good judgement present (Psych) Assessment & Plan Assessment & Plan (1) Tinea cruris: Code(s): B35.6 - Tinea cruris Plan: Patient has violaceous plaques to the bilateral groin and lower abdomen area consistent with apparent tinea cruris. The bilateral axillary and flank areas are less apparent, with normal pigmented macular papular and annular lesions. These seem more consistent with tinea versicolor of a superficial in nature. We discussed using ketoconazole cream to the groin, and he can use the ketoconazole shampoo to the body as needed, to prevent reoccurrence. He is follow up with PCP in 2 weeks, and can discuss further treatment if he is resistant at that point, such as an oral antifungal, or a further workup for underlying cause and possible referral to Dermatology. Medications: New ketoconazole 2% 1 appl topical BID 60 grams 0RF 3 weeks ketoconazole 2% 1 appl topical 2XW 120 mL 0RF 3 weeks Coding Level of Care Code Est Pt Level 4 (24476) Diagnoses Tinea cruris B35.6
--- OUTSIDE RECORDS SUMMARY | 2025-01-01 09:18 | XMS_ITS | Clinical Summary ---
Author Organization [facility] Address [address] [place] [address] Care Team Providers Care Flight Physician Name Role Phone Unavailable Primary Care Provider Unavailabl e Social History Tobacco Use Types Packs/Day Years Used Date Smoking Tobacco: Never Assessed Sex and Gender Information Value Date Recorded Sex Assigned at Male 04/22/2022 10:30 AM EDT Legal Sex Male 10:30 AM EDT Gender Identity Not on file Sexual Orientation Not on file Plan of Treatment Health Maintenance Due Date Last Done Comments CT Colonography 1969 Colonoscopy 1969 Colorectal Cancer Screening 1969 Depression Screening 1969 FIT DNA/Cologuard 1969 FIT 1969 FOBT 1969 Lipid Panel 1969 Sigmoidoscopy 1969 Disability Screening 1969 Alcohol/Substance Use Screening 1981 Tobacco Screening 1981 DTaP/Tdap/Td Vaccines (1 - Tdap) 1988 Hepatitis B Vaccines (1 of 3 - 19+ 3-dose series) 1988 Pneumococcal Vaccine: 50+ Ye ars (1 of 1 - PCV) 2019 Zoster Vaccines (1 of 2) 2019 COVID-19 Vaccine ( - 2023-2 5 season) 2024 Influenza Vaccine (#1) 2025 RSV Patients and Pa tients Aged 60 years or older (1 - 1-dose 75+ series) 2044 HIB Vaccines Aged Out No longer eligi ble based on patient's age to complete this topic HPV Vaccines Aged Out No longer eligi ble based on patient's age to complete this topic Hepatitis A Vaccines Aged Out No long er eligible based on patient's age to complete this topic IPV Vaccines Aged Out No longer eligi ble based on patient's age to complete this topic Meningococcal B Vaccine Aged Out No l onger eligible based on patient's age to complete this topic Meningococcal Vaccine Aged Out No yoko bjorn eligible based on patient's age to complete this topic RSV under 20 months Aged Out No longe r eligible based on patient's age to complete this topic Rotavirus Vaccines Aged Out No longer eligible based on patient's age to complete this topic
== END 2025-01-01 09:58 | disposition home or self-care (01) ==
PROVIDERS: PCP Internal Medicine; Visit Provider Physician Assistant Medical
DX: B35.6 Tinea cruris (principal)

== ENCOUNTER 2025-01-20 16:03 | Outpatient (REF) | payer BC, SELFPAY ==
--- NOTE | ~2025-01-20 | US_ITS ---
EXAMINATION: Ultrasound renal, bilaterally. CLINICAL INFORMATION: Renal stones. COMPARISON: No priors. TECHNIQUE: Real-time ultrasound kidneys using grayscale and color Doppler technique. FINDINGS: Right kidney: 11 x 7 x 5 cm. Normal echotexture. Normal renal cortical thickness. No hydronephrosis. No solid or cystic lesion detected. Left kidney: 11 x 6 x 6 cm. Normal echotexture. Normal renal cortical thickness. No hydronephrosis. No solid or cystic lesion detected. US/US renal BI IMPRESSION: No hydronephrosis or gross nephrolithiasis. Negative exam. Electronically signed by: Khalif Mclaughlin MD 01/21/2025 07:05 AM EDT
== END 2025-01-20 16:04 | disposition home or self-care (01) ==
LOC: HO.US 16:03
PROVIDERS: PCP Internal Medicine; Visit Provider Internal Medicine
DX: N20.0 Calculus of kidney (principal)
CPT/HCPCS: 76775

== ENCOUNTER → 2025-01-20 16:06 | Outpatient (BNV) | payer BC, SELFPAY | PROVIDERS: PCP Internal Medicine; Visit Provider Radiology Diagnostic Radiology | DX: N20.0 Calculus of kidney (principal) | CPT/HCPCS: 76775 ==

== ENCOUNTER 2025-06-09 16:37 | Outpatient (AMB) | payer BC, SELFPAY ==
--- NOTE | 2025-06-09 16:41 | MHC.PC.OV ---
Vital Signs 06/09/25 16:43 Height 5 ft 2 in Weight 165 lb BMI 30.2 BP 120/80 Blood Pressure Location Lt brachial Position Sitting Pulse 61 Pulse Source Pulse Oximeter Temp 97.1 F Temp Source Temporal Artery Scan Pulse Oximetry (%) 97 Oxygen Delivery Method Room Air Intake Visit Reasons: bp Engineering Technical Writer Required: Yes Engineering Technical Writer Language: Khmer Information Interpreted: non-clinical & clinical Employee Wellness/Fitness Coordinator: Not Required per policy Accompanied by: Self / Same As Patient Allergies No Known Allergies Allergy (Verified 06/09/25 16:59) Medication List - Last Reconciled 06/09/25 by Sravanthi Banuelos MD atorvastatin 40 mg PO BEDTIME 90 days cetirizine (All Day Allergy (cetirizine)) 10 mg PO DAILY PRN 30 days cholecalciferol (vitamin D3) 25 mcg PO DAILY 90 days ketoconazole 2% 1 appl topical BID 3 weeks ketoconazole 2% 1 appl topical 2XW 3 weeks losartan 50 mg PO DAILY 90 days Tobacco use date assessed: 06/09/25 Dental Screening Dental Screen Date: 12/09/24 [facility] Medical History Physical exam Overweight (BMI 25.0-29.9) Bone spur Benign prostatic hyperplasia with lower urinary tract symptoms Plantar fasciitis BPH (benign prostatic hyperplasia) Hypovitaminosis D Pure hypercholesterolemia Surgical History No pertinent past surgical history Family History Father CVD (cardiovascular disease) Mother No problems noted. Maternal Grandmother Cancer Social History Housing: House Alcohol intake: current Alcohol intake frequency: holidays/special occasions only Alcohol type: beer Patient Tobacco Use Status: Former Tobacco user Tobacco use type: Cigarette e-Cigarette/Vaping Use: Never Used Second Hand Smoke Exposure: Yes service: No Current occupational status: employed Current occupational exposures/hazards: No Cognitive needs: No Hearing needs: No Vision needs: No Questionnaire PHQ-9 Over the last 2 weeks, how often have you been bothered by any of the following problems? 1. Little interest or pleasure in doing things: not at all 2. Feeling down, depressed, or hopeless: not at all 3. Trouble falling or staying asleep, or sleeping too much: not at all 4. Feeling tired or having little energy: not at all 5. Poor appetite or overeating: not at all 6. Feeling bad about yourself - or that you are a failure or have let yourself or your family down: not at all 7. Trouble concentrating on things, such as reading the newspaper or watching television: not at all 8. Moving or speaking so slowly that other people could have noticed. Or the opposite - being so fidgety or restless that you have been moving around a lot more than usual: not at all 9. Thoughts that you would be better off or of hurting yourself in some way: not at all Total score: 0 Depression Screening Interpretation: Negative Depression Screening Done: Yes 04494 - PHQ-9 Billing: Yes Source: Developed by Drs. Javier Goldsmith, Jacqueline Coleman, Paco Zapata and colleagues, with an educational alexis from [employer]. Thrive Questionnaire Date Thrive assessed: 12/09/24 I am a: Patient What is your living situation today?: I have a steady place to live Within the past 12 months, did the food you bought not last and you didn't have the money to get more?: Never true Within the past 12 months, did you worry whether your food would run out before you got money to buy more?: Never true Do you have trouble paying for medicines?: No Do you have trouble getting transportation to medical appointments?: No Do you have trouble paying your heating and electricity bill?: No Do you have trouble taking care of your child, family member or friend?: No Do you have trouble with day-to-day activities such as bathing, preparing meals, shopping, managing finances, etc.?: No Are you currently unemployed and looking for a job?: No Are you interested in more education?: Yes Please select the resources that you would like help with: None Currently or been in a relationship where the following occur: No concerns reported THRIVE Score: 0 AUDIT C Alcohol Use Questionnaire (AUDIT-C) 1. How often do you have a drink containing alcohol?: Monthly or less 2. How many drinks containing alcohol do you have on a typical day when you are drinking?: 1 or 2 3. How often do you have six or more drinks on one occasion?: Never Total Score: 1 Score Reviewed/Action Taken: No CHIARA-7 AMB Questionnaire CHIARA-7 Date CHIARA - 7 assessed: 12/09/24 Feeling nervous, anxious, or on edge: 0 = Not at all Not being able to stop or control worryin = Not at all Worrying too much about different things: 0 = Not at all Trouble relaxin = Not at all Being so restless that it is hard to sit still: 0 = Not at all Becoming easily annoyed or irritable: 0 = Not at all Feeling afraid as if something awful might happen: 0 = Not at all Total CHIARA-7 score (0-4 normal; 5-9 mild; 10-14 moderate; 15-21 severe): 0 Source: Developed by Drs. Javier Goldsmith, Jacqueline Coleman, Paco Zapata and colleagues, with an educational alexis from [employer]. CHIARA-7 Assessment Billing CHIARA-7 Assessment Tool: CHIARA-7 Assessment 38434 Review of Systems Const All systems reviewed & are unremarkable except as noted in HPI and below Card Denies chest pain at rest, Denies chest pain with activity, Denies edema, Denies irregular heart rhythm, Denies claudication, Denies dyspnea, Denies dyspnea on exertion, Denies orthopnea, Denies paroxysmal nocturnal dyspnea and Denies slow heart rate Resp Denies cough, Denies dyspnea and Denies dyspnea on exertion GI Denies abdominal pain, Denies change in bowel habits, Denies excessive flatus, Denies nausea and Denies vomiting Physical exam (Primary Care) Vital Signs: Last Vital Signs Temp 97.1 F 06/09/25 16:43 Pulse 61 06/09/25 16:43 BP 120/80 06/09/25 16:43 Pulse Ox 97 06/09/25 16:43 Oxygen Delivery Method Room Air 06/09/25 16:43 BMI result Body Mass Index 30.2 Tobacco/Smoking Status: Tobacco use Status Tobacco use date assessed 06/09/25 06/09/25 16:49 Patient Tobacco Use Status Former Tobacco user 06/09/25 16:49 Tobacco use type Cigarette 06/09/25 16:49 e-Cigarette/Vaping Use Never Used 06/09/25 16:49 PHQ-9: PHQ-9 Score PHQ-9: Total score 0 06/09/25 17:00 Depression Screening Interpretation: Negative Thrive Assessment: Date of Thrive Assessment Date Thrive assessed 12/09/24 06/09/25 16:49 Currently or been in a relationship where the following occur: No concerns reported Resp Effort & Inspection: normal respiratory effort Auscultation: clear to auscultation bilaterally Cardio Jugular venous distension: no JVD Rate: regular rate Rhythm: regular rhythm Heart sounds: S1 normal heart sound present and S2 normal heart sound present Extrem General: Yes full ROM Office Procedures Flu Questionnaire Does the patient have a severe egg allergy?: No Does the patient have severe life threatening allergies?: No Does the patient have a fever or illness today?: No Has the patient ever had Guillain-Denhoff Syndrome?: No Has the patient ever had any past reaction to a flu shot?: No Immunizations Fluarix [id number] (PF) 45 mcg (15 mcg x 3)/0.5 mL IM syringe Performing Provider: Sravanthi Banuelos MD [facility] Administered by: Rafia Schwartz LPN on 06/09/25 17:03 Dose Route Admin Location Dispensed Lot Number Expiration Date [facility] Shuttle Final Inspector 0.5 mL IM Left Deltoid 0.5 mL [id number] 12/20/25 [id number] Everyone Counts VIS Given Date VIS Provided VIS Publication Date 06/09/25 Single Vaccine 24 Eligibility Eligibility Date Funding Source Not [facility] Eligible 06/09/25 Private Coding Additional Codes PHQ-9 - 16031 - PHQ-9 Billing: Yes ([id number]) CHIARA-7 Assessment Billing - CHIARA-7 Assessment Tool: CHIARA-7 Assessment 93263 ([id number]) Assessment & Plan Assessment & Plan Orders: Orders Lipid Panel 6 Months E78.5 - Hyperlipidemia, unspecified, I10 - Essential (primary) hypertension Influenza [id number] Immunization Today Z23 - Encounter for immunization Vitamin D 25-OH Total 6 Months E55.9 - Vitamin D deficiency, unspecified Comprehensive Met. Panel 6 Months I10 - Essential (primary) hypertension Medications: Refilled losartan 50 mg PO DAILY 90 tabs 1RF 90 days I10 - Essential (primary) hypertension atorvastatin 40 mg PO BEDTIME 90 tabs 1RF 90 days
[2025-06-09 16:43] VITALS: BP 120/80; PULSE 61; TEMP 36.2; O2SAT 97; BMI 30.2
--- OUTSIDE RECORDS SUMMARY | 2025-06-09 19:47 | XMS_ITS | Encounter Summary ---
Author Organization [employer] Address [address] [place] [address] Care Team Providers Care Airport Control Operator Name Role Phone Unavailable Primary Care Provider Unavailabl e Encounter Details Date Type Department Care Team (Latest Contact Info) Description 03/08/2019 Abstract [facility] CONVERSIONS Dental, Provider, DDS Social History Tobacco Use Types Packs/Day Years Used Date Smoking Tobacco: Never Assessed Sex and Gender Information Value Date Recorded Sex Assigned at Male 04/22/2022 10:30 AM EDT Legal Sex Male 10:30 AM EDT Gender Identity Not on file Sexual Orientation Not on file documented as of this encounter Plan of Treatment Not on file documented as of this encounter Visit Diagnoses Not on filedocumented in this encounter
--- OUTSIDE RECORDS SUMMARY | 2025-06-09 19:47 | XMS_ITS | Clinical Summary ---
Author Organization [employer] Address [address] [place] [address] Care Team Providers Care Box Closing Machine Operator Name Role Phone Unavailable Primary Care [...] of 2) 2019 COVID-19 Vaccine ( - 2024-2 6 season) 2025 Influenza Vaccine (#1) 2025 RSV Patients and [...]
== END 2025-06-09 17:11 | disposition home or self-care (01) ==
LOC: HO.HMCH 16:38
PROVIDERS: PCP Internal Medicine; Visit Provider Internal Medicine
DX: Z23 Encounter for immunization (principal)

== ENCOUNTER → 2025-06-09 16:37 | Outpatient (BNVA) | payer BC, SELFPAY | PROVIDERS: PCP Internal Medicine; Visit Provider Internal Medicine | DX: I10 Essential (primary) hypertension (principal); E78.00 Pure hypercholesterolemia, unspecified; E55.9 Vitamin D deficiency, unspecified; Z23 Encounter for immunization | CPT/HCPCS: 90471; 90656; 96127 ==